=== PATIENT | female | born 1995 | race Caucasian/White ===

== ENCOUNTER 2017-05-12 16:44 | Emergency (ER) | payer OTHER ==
[~2017-05-12] VITALS: Ht 157.5 cm; Wt 61.2 kg
[~2017-05-12 16:44] MED LIST: ALBUTEROL
[2017-05-12] MEDS ORDERED: SODIUM CHLORIDE 0.9% 1,000 ML IV ONE (18:49)
[2017-05-12 19:16] LABS: BASOPHILS % 0.2 % (0.0-2.0); EOSINOPHILS % 0.1 % (0.0-5.0); HEMATOCRIT. 38.7 % (36.0-48.0); HEMOGLOBIN. 13.1 g/dL (12.0-16.0); LYMPHOCYTES % 13.9 % (20.0-50.0); MEAN CORPUSCULAR HEMOGLOBIN 27.5 pg (28.0-32.0); MEAN CORPUSCULAR VOLUME 81.2 fL (81.0-99.0); MEAN PLATELET VOLUME 9.5 fl (7.4-10.4); MONOCYTES % 6.3 % (2.0-8.0); NEUTROPHILS % 79.5 % (40.0-76.0); PLATELET 178 x1000/uL (130-400); RED BLOOD CELL COUNT 4.77 mill/uL (4.2-5.4); RED CELL DISTRIBUTION WIDTH 13.5 % (11.6-14.6)
[2017-05-12 19:21] LABS: HCG SCREEN POSITIVE
[2017-05-12 19:24] LABS: CHLORIDE 106 mEq/L (98-107); PARTIAL THROMBOPLASTIN TIME 25.8 sec (23.4-31.0); PROTHROMBIN TIME 10.5 sec (9.4-11.6)
[2017-05-12 19:25] LABS: CARBON DIOXIDE 24 mEq/L (21-32)
[2017-05-12 19:33] LABS: TROPONIN I 0.03 ng/mL (0.00-0.04)
[2017-05-12 19:37] LABS: B-HCG QUANTITATIVE 826 mIU/mL (<3)
[2017-05-12 19:42] LABS: *AMPHETAMINES SCREEN URINE NEGATIVE (NEGATIVE); *BARBITURATES SCREEN URINE NEGATIVE (NEGATIVE); *BENZODIAZEPINES SCREEN URINE NEGATIVE (NEGATIVE); *COCAINE SCREEN URINE NEGATIVE (NEGATIVE); CANNABINOID URINE SCREEN NEGATIVE (NEGATIVE); METHADONE URINE SCREEN NEGATIVE (NEGATIVE); OPIATES URINE SCREEN NEGATIVE (NEGATIVE); PHENCYCLIDINE URINE SCREEN NEGATIVE (NEGATIVE)
[2017-05-12 23:42] VITALS: BP 126/75
== END 2017-05-13 01:45 | disposition short-term general hospital (02) ==
LOC: ER 17:17
DX: O9A.211 Injury, poisoning and certain other consequences of external causes complicating pregnancy, first trimester (principal); S10.93XA Contusion of unspecified part of neck, initial encounter; S39.91XA Unspecified injury of abdomen, initial encounter; S09.90XA Unspecified injury of head, initial encounter; S29.9XXA Unspecified injury of thorax, initial encounter; O99.411 Diseases of the circulatory system complicating pregnancy, first trimester; R00.0 Tachycardia, unspecified; J45.909 Unspecified asthma, uncomplicated; Z3A.01 Less than 8 weeks gestation of pregnancy; Y04.0XXA Assault by unarmed brawl or fight, initial encounter; Y93.89 Activity, other specified; Y92.89 Other specified places as the place of occurrence of the external cause; Y99.8 Other external cause status
CPT/HCPCS: 36415; 70551; 71010; 72141; 76705; 76801; 76817; 80053; 80305; 81025; 83690; 83880; 84484; 84702; 84703; 85025; 85610; 85730; 86850; 86900; 86901; 93005; 99285; J7030; Z7610

== ENCOUNTER 2017-12-16 00:49 | Inpatient (IN) | payer OTHER ==
[~2017-12-16] VITALS: Ht 154.9 cm; Wt 67.1 kg
[2017-12-16] MEDS ORDERED: PNV1TABL76 MT (01:30)
[2017-12-16] MEDS ORDERED: DEXT 5%/LR + PITOCIN 20UNITS/L 1,000 ML IV SCH (01:33)
[2017-12-16] MEDS ORDERED: CARBOPROST TROMETHAMINE 250 MCG/ML AMPUL IM PRN (01:45)
[2017-12-16] MEDS ORDERED: NALOXONE HCL 0.4 MG/ML 1ML VIAL IM PRN (01:45)
[2017-12-16] MEDS ORDERED: METHYLERGONOVINE MALEATE 0.2 MG/ML IM PRN (01:45)
[2017-12-16] MEDS ORDERED: LIDOCAINE HCL 1% 20ML VIAL (Pyxis) INJ INFIL SCH (01:45)
[2017-12-16] MEDS ORDERED: BUTORPHANOL TARTRATE 2 MG/ML VIAL IV PRN (01:45)
[2017-12-16] MEDS: LACTATED RINGERS 1,000 ML IV SCH ×4 (01:50→09:38)
[2017-12-16] MEDS ORDERED: PENICILLIN G POTASSIUM 5 MMU in DEXT 5% WATER 100 ML IV SCH (02:00)
[2017-12-16 02:20] LABS: BASOPHILS % 0.3 % (0.0-2.0); EOSINOPHILS % 1.5 % (0.0-5.0); HEMATOCRIT. 44.1 % (36.0-48.0); LYMPHOCYTES % 35.9 % (20.0-50.0); MEAN CORPUSCULAR HEMOGLOBIN 30.3 pg (28.0-32.0); MEAN CORPUSCULAR VOLUME 89.4 fL (81.0-99.0); MEAN PLATELET VOLUME 11.6 fl (7.4-10.4); MONOCYTES % 7.1 % (2.0-8.0); NEUTROPHILS % 55.2 % (40.0-76.0); PLATELET 105 x1000/uL (130-400); RED BLOOD CELL COUNT 4.94 mill/uL (4.2-5.4); RED CELL DISTRIBUTION WIDTH 13.5 % (11.6-14.6)
[2017-12-16 02:37] LABS: INR 0.9; PARTIAL THROMBOPLASTIN TIME 29.1 sec (23.4-31.0); PROTHROMBIN TIME 9.2 sec (9.4-11.6)
[2017-12-16 05:41] LABS: CLARITY URINE CLOUDY (CLEAR); COLOR URINE YELLOW (YELLOW); KETONES URINE NEGATIVE (NEGATIVE); LEUKOCYTE ESTERASE URINE 2+ (NEGATIVE); NITRITE URINE NEGATIVE (NEGATIVE); OCCULT BLOOD URINE 3+ (NEGATIVE); PH URINE 6.5 (4.5-8.0); PROTEIN URINE NEGATIVE (NEGATIVE); SPECIFIC GRAVITY URINE 1.007 (1.005-1.030); UROBILINOGEN URINE 0.2 E.U./dL (0.2-1.0)
[2017-12-16] MEDS: PENICILLIN G POTASSIUM 2.5 MMU in DEXTROSE 5% WATER 50 ML IV SCH ×5 (06:04→22:33)
[2017-12-16 06:13] LABS: *AMPHETAMINES SCREEN URINE NEGATIVE (NEGATIVE); *BENZODIAZEPINES SCREEN URINE NEGATIVE (NEGATIVE); *COCAINE SCREEN URINE NEGATIVE (NEGATIVE); CANNABINOID URINE SCREEN NEGATIVE (NEGATIVE); METHADONE URINE SCREEN NEGATIVE (NEGATIVE)
[2017-12-16 06:14] LABS: OPIATES URINE SCREEN NEGATIVE (NEGATIVE); PHENCYCLIDINE URINE SCREEN NEGATIVE (NEGATIVE)
[2017-12-16 06:16] LABS: *BARBITURATES SCREEN URINE NEGATIVE (NEGATIVE)
[2017-12-16] MEDS ORDERED: ERYTHROMYCIN LACTOBIONATE 500 MG in SODIUM CHLORIDE 0.9% 100 ML IV SCH (07:00)
[2017-12-16] MEDS: AZITHROMYCIN 500 MG in SODIUM CHLORIDE 0.9% 250 ML IV SCH (08:15)
[2017-12-16] MEDS: BETAMETHASONE ACET/BETAMET 30 MG/5 ML VIAL IM SCH (09:56)
[2017-12-16 10:45] LABS: BASOPHILS % 0.3 % (0.0-2.0); EOSINOPHILS % 0.3 % (0.0-5.0); HEMATOCRIT. 43.7 % (36.0-48.0); HEMOGLOBIN. 14.8 g/dL (12.0-16.0); MEAN CORPUSCULAR HEMOGLOBIN 30.1 pg (28.0-32.0); MEAN CORPUSCULAR VOLUME 89.2 fL (81.0-99.0); MEAN PLATELET VOLUME 11.6 fl (7.4-10.4); MONOCYTES % 5.2 % (2.0-8.0); NEUTROPHILS % 77.2 % (40.0-76.0); PLATELET 99 x1000/uL (130-400); RED BLOOD CELL COUNT 4.91 mill/uL (4.2-5.4); RED CELL DISTRIBUTION WIDTH 13.8 % (11.6-14.6)
[2017-12-16 10:48] LABS: CHLORIDE 107 mEq/L (98-107)
[2017-12-16 11:00] LABS: D-DIMER 0.94 mg/L FEU (<0.50); INR 0.9; PARTIAL THROMBOPLASTIN TIME 30.8 sec (23.4-31.0); PROTHROMBIN TIME 9.5 sec (9.4-11.6)
[2017-12-16 11:59] LABS: RUBELLA IGG 18.4 IU/mL (4.99-10)
[2017-12-16 12:00] LABS: HEPATITIS B SURFACE ANTIGEN NEGATIVE
[2017-12-16 14:59] LABS: CLARITY URINE CLEAR (CLEAR); COLOR URINE YELLOW (YELLOW); KETONES URINE NEGATIVE (NEGATIVE); LEUKOCYTE ESTERASE URINE NEGATIVE (NEGATIVE); NITRITE URINE NEGATIVE (NEGATIVE); OCCULT BLOOD URINE TRACE (NEGATIVE); PROTEIN URINE TRACE (NEGATIVE); SPECIFIC GRAVITY URINE 1.007 (1.005-1.030); UROBILINOGEN URINE 0.2 E.U./dL (0.2-1.0)
[2017-12-16 22:09] LABS: BASOPHILS % 0.2 % (0.0-2.0); HEMATOCRIT. 43.2 % (36.0-48.0); HEMOGLOBIN. 15.1 g/dL (12.0-16.0); LYMPHOCYTES % 9.9 % (20.0-50.0); MEAN CORPUSCULAR HEMOGLOBIN 31.1 pg (28.0-32.0); MEAN CORPUSCULAR VOLUME 89.3 fL (81.0-99.0); MEAN PLATELET VOLUME 11.9 fl (7.4-10.4); MONOCYTES % 3.2 % (2.0-8.0); NEUTROPHILS % 86.7 % (40.0-76.0); PLATELET 112 x1000/uL (130-400); RED BLOOD CELL COUNT 4.84 mill/uL (4.2-5.4)
[2017-12-16] MEDS ORDERED: BUPIVACAINE HCL/PF 0.25% (2.5MG/ML) 10ML ONE (22:30)
[2017-12-16] MEDS ORDERED: BUPIVACAINE HCL/NS/PF EPIDURAL 100 ML EP ONE (22:30)
[2017-12-16] MEDS ORDERED: FENTANYL CITRATE/PF 50MCG/ML 5ML VIAL ONE (22:30)
[2017-12-16] MEDS ORDERED: BUPIVACAINE HCL/NS/PF EPIDURAL 100 ML EP SCH (23:00)
[2017-12-17] MEDS: PENICILLIN G POTASSIUM 2.5 MMU in DEXTROSE 5% WATER 50 ML IV SCH ×4 (02:20→13:48)
[2017-12-17] MEDS ORDERED: LACTATED RINGERS 1,000 ML IV SCH (04:15)
[2017-12-17] MEDS ORDERED: BUPIVACAINE HCL/NS/PF EPIDURAL 100 ML EP ONE (07:55)
[2017-12-17] MEDS ORDERED: HETASTARCH/NORMAL SALINE 500 ML IV ONE (07:56)
[2017-12-17] MEDS: AZITHROMYCIN 500 MG in SODIUM CHLORIDE 0.9% 250 ML IV SCH (09:54)
[2017-12-17] MEDS: BETAMETHASONE ACET/BETAMET 30 MG/5 ML VIAL IM SCH (09:58)
[2017-12-17] MEDS ORDERED: DEXT 5%/LR + PITOCIN 20UNITS/L 1,000 ML IV NR (10:30)
[2017-12-17] MEDS ORDERED: DEXT 5%/LR + PITOCIN 20UNITS/L 1,000 ML IV SCH ×2 (10:30→15:51)
[2017-12-17] MEDS ORDERED: BUPIVACAINE HCL/PF 0.25% (2.5MG/ML) 10ML ONE (13:00)
[2017-12-17 13:36] LABS: BASOPHILS % 0.1 % (0.0-2.0); HEMATOCRIT. 44.2 % (36.0-48.0); HEMOGLOBIN. 14.8 g/dL (12.0-16.0); LYMPHOCYTES % 9.5 % (20.0-50.0); MEAN CORPUSCULAR HEMOGLOBIN 30.1 pg (28.0-32.0); MEAN CORPUSCULAR VOLUME 89.9 fL (81.0-99.0); MEAN PLATELET VOLUME 11.2 fl (7.4-10.4); MONOCYTES % 1.7 % (2.0-8.0); NEUTROPHILS % 88.7 % (40.0-76.0); PLATELET 100 x1000/uL (130-400); RED BLOOD CELL COUNT 4.92 mill/uL (4.2-5.4); RED CELL DISTRIBUTION WIDTH 14.3 % (11.6-14.6)
[2017-12-17 13:39] LABS: INR 0.9; PARTIAL THROMBOPLASTIN TIME 26.3 sec (23.4-31.0); PROTHROMBIN TIME 9.4 sec (9.4-11.6)
[2017-12-17 14:04] LABS: CHLORIDE 106 mEq/L (98-107)
[2017-12-17] MEDS ORDERED: IBUPROFEN 800MG TABLET PO PRN (16:00)
[2017-12-17] MEDS ORDERED: LANOLIN OINT 0.25 GM TUBE TOP PRN (16:00)
[2017-12-17] MEDS ORDERED: RHO(D) IMMUNE GLOBULIN 300 MCG/SYR IM PRN (16:00)
[2017-12-17] MEDS ORDERED: IBUPROFEN 400MG TABLET PO PRN (16:00)
[2017-12-17] MEDS ORDERED: DIPHENHYDRAMINE 25MG CAPSULE PO PRN (16:00)
[2017-12-17 17:30] VITALS: BP 129/84
[2017-12-17 19:20] VITALS: BP 121/76
[2017-12-17] MEDS: DOCUSATE SODIUM 100MG CAPSULE PO SCH (21:04)
[2017-12-18 04:10] VITALS: BP 111/69
[2017-12-18 05:58] LABS: BASOPHILS % 0.1 % (0.0-2.0); HEMOGLOBIN. 12.8 g/dL (12.0-16.0); LYMPHOCYTES % 15.9 % (20.0-50.0); MEAN CORPUSCULAR HEMOGLOBIN 30.2 pg (28.0-32.0); MEAN PLATELET VOLUME 11.7 fl (7.4-10.4); MONOCYTES % 5.3 % (2.0-8.0); NEUTROPHILS % 78.7 % (40.0-76.0); PLATELET 90 x1000/uL (130-400); RED BLOOD CELL COUNT 4.23 mill/uL (4.2-5.4); RED CELL DISTRIBUTION WIDTH 14.1 % (11.6-14.6)
[2017-12-18 08:40] VITALS: BP 126/89
[2017-12-18 16:00] VITALS: BP 131/72
[2017-12-18] MEDS: PRENATAL VIT/FE FUMARATE/FA TABLET PO SCH (16:57)
[2017-12-18] MEDS: DOCUSATE SODIUM 100MG CAPSULE PO SCH (21:00)
[2017-12-18 22:00] VITALS: BP 117/67
[2017-12-19 00:01] VITALS: BP 131/78
[2017-12-19 06:22] LABS: HEMATOCRIT 42.9 % (36.0-48.0); HEMOGLOBIN 14.3 g/dL (12.0-16.0); MEAN CORPUSCULAR HEMOGLOBIN 30.3 pg (28.0-32.0); MEAN CORPUSCULAR VOLUME 91.1 fL (81.0-99.0); PLATELET 97 x1000/uL (130-400); RED BLOOD CELL COUNT 4.71 mill/uL (4.2-5.4); RED CELL DISTRIBUTION WIDTH 14.1 % (11.6-14.6)
[2017-12-19 08:00] VITALS: BP 130/80
[2017-12-19] MEDS: PRENATAL VIT/FE FUMARATE/FA TABLET PO SCH (08:20)
[2017-12-19] MEDS ORDERED: TETANUS, DIPHTHERIA, PERTUSSIS VAC/PF 0.5ML (>7YR OLD) IM ONE (12:30)
== END 2017-12-19 13:00 | disposition home or self-care (01) | DRG 560 ==
LOC: OBSVTOIN 00:49 → L&D 00:49 → 7EST PP/OB 12-17 17:30
PROVIDERS: ADMIT Specialist; ATTEND Specialist
PROC: 3E0R3BZ Introduction of Anesthetic Agent into Spinal Canal, Percutaneous Approach (ICD-10-PCS; 2017-12-17)
PROC: 00HU33Z Insertion of Infusion Device into Spinal Canal, Percutaneous Approach (ICD-10-PCS; 2017-12-17)
PROC: 10E0XZZ Delivery of Products of Conception, External Approach (ICD-10-PCS; principal; 2017-12-17 14:56)
DX: O42.913 Preterm premature rupture of membranes, unspecified as to length of time between rupture and onset of labor, third trimester (principal); D69.6 Thrombocytopenia, unspecified; Z37.0 Single live birth; O99.12 Other diseases of the blood and blood-forming organs and certain disorders involving the immune mechanism complicating childbirth; J45.909 Unspecified asthma, uncomplicated; O99.52 Diseases of the respiratory system complicating childbirth; Z3A.36 36 weeks gestation of pregnancy
CPT/HCPCS: 36415; 76805; 76818; 80053; 80305; 81003; 84550; 85025; 85027; 85379; 85384; 85610; 85730; 86592; 86703; 86762; 86850; 86900; 87086; 87340; 88307; 90715; 99281; G0378; J0456; J0595; J0702; J2540; J2590; J3010; J3490; J7050; J7060; J7120; A4315

== ENCOUNTER 2019-12-15 14:21 | Observation (INO) | payer MEDICAID ==
[~2019-12-15] VITALS: Ht 154.9 cm; Wt 75.7 kg
[~2019-12-15 14:21] MED LIST changes: +PNV1TABL76 MT
[2019-12-15 16:28] LABS: CLARITY URINE CLEAR (CLEAR); COLOR URINE YELLOW (YELLOW); KETONES URINE NEGATIVE (NEGATIVE); LEUKOCYTE ESTERASE URINE TRACE (NEGATIVE); NITRITE URINE NEGATIVE (NEGATIVE); OCCULT BLOOD URINE NEGATIVE (NEGATIVE); PROTEIN URINE TRACE (NEGATIVE); SPECIFIC GRAVITY URINE 1.013 (1.005-1.030)
[2019-12-15 16:28] LABS: BASOPHILS % 0.3 % (0.0-2.0); EOSINOPHILS % 0.4 % (0.0-5.0); HEMATOCRIT. 35.6 % (36.0-48.0); HEMOGLOBIN. 11.7 g/dL (12.0-16.0); LYMPHOCYTES % 15.2 % (20.0-50.0); MEAN CORPUSCULAR HEMOGLOBIN 27.1 pg (28.0-32.0); MEAN CORPUSCULAR VOLUME 82.6 fL (81.0-99.0); MEAN PLATELET VOLUME 11.9 fl (7.4-10.4); MONOCYTES % 6.4 % (2.0-8.0); NEUTROPHILS % 77.7 % (40.0-76.0); PLATELET 161 x1000/uL (130-400); RED BLOOD CELL COUNT 4.32 mill/uL (4.2-5.4); RED CELL DISTRIBUTION WIDTH 13.8 % (11.6-14.6)
[2019-12-15 16:31] LABS: CHLORIDE 108 mEq/L (98-107)
[2019-12-15 16:41] LABS: D-DIMER 0.68 mg/L FEU (<0.50); INR 0.8; PARTIAL THROMBOPLASTIN TIME 25.4 sec (23.4-31.0); PROTHROMBIN TIME 9.1 sec (9.6-11.0)
== END 2019-12-15 17:15 | disposition home or self-care (01) ==
LOC: 8 EST LDRP 14:21
PROVIDERS: ADMIT Obstetrics & Gynecology; ATTEND Obstetrics & Gynecology
DX: O26.893 Other specified pregnancy related conditions, third trimester (principal); R03.0 Elevated blood-pressure reading, without diagnosis of hypertension; Z3A.37 37 weeks gestation of pregnancy; Z79.899 Other long term (current) drug therapy
CPT/HCPCS: 36415; 80053; 81003; 82570; 84156; 84550; 85025; 85379; 85384; 85610; 85730; 99281; G0378

== ENCOUNTER 2019-12-21 15:17 | Inpatient (IN) | payer MEDICAID ==
[~2019-12-21] VITALS: Ht 154.9 cm; Wt 75.3 kg
[2019-12-21] MEDS ORDERED: BUTORPHANOL TARTRATE 2 MG/ML VIAL IV PRN (16:15)
[2019-12-21] MEDS ORDERED: LIDOCAINE HCL 1% 20ML VIAL (Pyxis) INJ INFIL SCH (16:15)
[2019-12-21] MEDS ORDERED: NALOXONE HCL 0.4 MG/ML 1ML VIAL IM PRN (16:15)
[2019-12-21] MEDS: LACTATED RINGERS 1,000 ML IV SCH ×2 (16:30→21:40)
[2019-12-21] MEDS ORDERED: PENICILLIN G POTASSIUM 5 MMU in DEXT 5% WATER 100 ML IV SCH (17:00)
[2019-12-21 17:31] LABS: BASOPHILS % 0.2 % (0.0-2.0); EOSINOPHILS % 0.3 % (0.0-5.0); HEMATOCRIT. 38.5 % (36.0-48.0); HEMOGLOBIN. 12.7 g/dL (12.0-16.0); MEAN CORPUSCULAR HEMOGLOBIN 26.9 pg (28.0-32.0); MEAN CORPUSCULAR VOLUME 81.8 fL (81.0-99.0); MEAN PLATELET VOLUME 12.2 fl (7.4-10.4); MONOCYTES % 5.7 % (2.0-8.0); NEUTROPHILS % 79.8 % (40.0-76.0); PLATELET 184 x1000/uL (130-400); RED BLOOD CELL COUNT 4.71 mill/uL (4.2-5.4)
[2019-12-21 17:32] LABS: CHLORIDE 106 mEq/L (98-107)
[2019-12-21 17:41] LABS: INR 0.8; PARTIAL THROMBOPLASTIN TIME 26.3 sec (23.4-31.0)
[2019-12-21] MEDS: DEXT 5%/LR + PITOCIN 20UNITS/L 1,000 ML IV SCH (17:57)
[2019-12-21 18:31] LABS: *AMPHETAMINES SCREEN URINE NEGATIVE (NEGATIVE); *BARBITURATES SCREEN URINE NEGATIVE (NEGATIVE); *BENZODIAZEPINES SCREEN URINE NEGATIVE (NEGATIVE); *COCAINE SCREEN URINE NEGATIVE (NEGATIVE); METHADONE URINE SCREEN NEGATIVE (NEGATIVE)
[2019-12-21 18:32] LABS: CANNABINOID URINE SCREEN NEGATIVE (NEGATIVE); OPIATES URINE SCREEN NEGATIVE (NEGATIVE); PHENCYCLIDINE URINE SCREEN NEGATIVE (NEGATIVE)
[2019-12-21 18:33] LABS: HEPATITIS B SURFACE ANTIGEN NEGATIVE
[2019-12-21 19:13] LABS: PROTHROMBIN TIME 8.9 sec (9.6-11.0)
[2019-12-21] MEDS ORDERED: ROPIVACAINE HCL/PF EPIDURAL 200 ML EPI SCH (20:00)
[2019-12-21] MEDS ORDERED: DEXT 5%/LR + PITOCIN 20UNITS/L 1,000 ML IV ONE (20:26)
[2019-12-21] MEDS: PENICILLIN G POTASSIUM 2.5 MMU in DEXTROSE 5% WATER 50 ML IV SCH (21:37)
[2019-12-22] MEDS: PENICILLIN G POTASSIUM 2.5 MMU in DEXTROSE 5% WATER 50 ML IV SCH ×6 (01:00→21:42)
[2019-12-22] MEDS: LACTATED RINGERS 1,000 ML IV SCH ×2 (02:37→17:20)
[2019-12-22] MEDS ORDERED: ROPIVACAINE HCL 2MG/ML (0.2%) 200ML BOTTLE IR ONE (16:45)
[2019-12-22] MEDS ORDERED: ROPIVACAINE HCL/PF EPIDURAL 200 ML EPI NR (16:45)
[2019-12-22] MEDS ORDERED: METHIMAZOLE (20:09)
[2019-12-22] MEDS ORDERED: ACETAMINOPHEN 500MG TABLET PO NR (20:15)
[2019-12-22] MEDS: METHIMAZOLE 5MG TABLET PO SCH (20:25)
[2019-12-23] MEDS ORDERED: LIDOCAINE HCL 1% 20ML VIAL (Pyxis) INJ INFIL SCH (00:30)
[2019-12-23] MEDS: DEXT 5%/LR + PITOCIN 20UNITS/L 1,000 ML IV SCH ×2 (00:59→01:02)
[2019-12-23] MEDS ORDERED: PENICILLIN G POTASSIUM 2.5 MMU in DEXTROSE 5% WATER 50 ML IV SCH (01:00)
[2019-12-23] MEDS ORDERED: DIPHENHYDRAMINE 25MG CAPSULE PO PRN (01:45)
[2019-12-23] MEDS ORDERED: HEMORRHOIDAL SUPP PR PRN (01:45)
[2019-12-23] MEDS ORDERED: GLYCERIN/WITCH HAZEL LEAF MEDICATED PAD TOP PRN (01:45)
[2019-12-23] MEDS ORDERED: ACETAMINOPHEN 500MG TABLET PO PRN (01:45)
[2019-12-23] MEDS ORDERED: DEXT 5%/LR + PITOCIN 20UNITS/L 1,000 ML IV SCH (01:45)
[2019-12-23] MEDS ORDERED: BENZOCAINE/LANOLIN/ALOE VERA SPRAY TOP PRN (01:45)
[2019-12-23] MEDS ORDERED: BISACODYL 10MG SUPP PR PRN (01:45)
[2019-12-23] MEDS ORDERED: IBUPROFEN 400MG TABLET PO PRN (01:45)
[2019-12-23] MEDS ORDERED: LANOLIN OINT 7GM TUBE TOP PRN (01:45)
[2019-12-23] MEDS ORDERED: METHYLERGONOVINE MALEATE 0.2 MG/ML IM PRN (02:00)
[2019-12-23] MEDS: IBUPROFEN 800MG TABLET PO PRN ×2 (02:20→09:34)
[2019-12-23] MEDS: LABETALOL HCL 200MG TABLET PO SCH ×4 (04:31→21:18)
[2019-12-23 05:45] VITALS: BP 129/77
[2019-12-23 08:41] VITALS: BP 114/70
[2019-12-23] MEDS: METHIMAZOLE 5MG TABLET PO SCH ×2 (09:34→21:17)
[2019-12-23] MEDS: SIMETHICONE 80MG TABLET CHEW PO SCH ×4 (09:34→21:17)
[2019-12-23] MEDS: PRENATAL VIT/FE FUMARATE/FA TABLET PO SCH (09:35)
[2019-12-23 14:57] VITALS: BP 139/72
[2019-12-23] MEDS ORDERED: DOCUSATE SODIUM 100MG CAPSULE PO SCH (21:00)
[2019-12-23 22:00] VITALS: BP 118/72
[2019-12-24 05:20] VITALS: BP 115/70
[2019-12-24 07:28] VITALS: BP 124/81
[2019-12-24] MEDS ORDERED: FERROUS SULFATE 325MG TABLET PO SCH (07:30)
[2019-12-24] MEDS: SIMETHICONE 80MG TABLET CHEW PO SCH (08:12)
[2019-12-24] MEDS: PRENATAL VIT/FE FUMARATE/FA TABLET PO SCH (08:13)
[2019-12-24] MEDS: IBUPROFEN 800MG TABLET PO PRN (08:13)
[2019-12-24] MEDS: LABETALOL HCL 200MG TABLET PO SCH (08:14)
[2019-12-24] MEDS: METHIMAZOLE 5MG TABLET PO SCH (08:15)
== END 2019-12-24 12:30 | disposition home or self-care (01) | DRG 560 ==
LOC: OBSVTOIN 15:17 → 8 EST LDRP 15:17 → 8EST 12-23 05:45
PROVIDERS: ADMIT Obstetrics & Gynecology; ATTEND Obstetrics & Gynecology
PROC: 10E0XZZ Delivery of Products of Conception, External Approach (ICD-10-PCS; principal; 2019-12-23)
PROC: 10907ZC Drainage of Amniotic Fluid, Therapeutic from Products of Conception, Via Natural or Artificial Opening (ICD-10-PCS; 2019-12-23)
PROC: 10H07YZ Insertion of Other Device into Products of Conception, Via Natural or Artificial Opening (ICD-10-PCS; 2019-12-23)
PROC: 3E0R3BZ Introduction of Anesthetic Agent into Spinal Canal, Percutaneous Approach (ICD-10-PCS; 2019-12-23)
PROC: 00HU33Z Insertion of Infusion Device into Spinal Canal, Percutaneous Approach (ICD-10-PCS; 2019-12-23)
PROC: 3E033VJ Introduction of Other Hormone into Peripheral Vein, Percutaneous Approach (ICD-10-PCS; 2019-12-23)
DX: O13.4 Gestational [pregnancy-induced] hypertension without significant proteinuria, complicating childbirth (principal); E05.90 Thyrotoxicosis, unspecified without thyrotoxic crisis or storm; O14.94 Unspecified pre-eclampsia, complicating childbirth; O99.824 Streptococcus B carrier state complicating childbirth; O69.82X0 Labor and delivery complicated by other cord entanglement, without compression, not applicable or unspecified; O69.81X0 Labor and delivery complicated by cord around neck, without compression, not applicable or unspecified; O99.284 Endocrine, nutritional and metabolic diseases complicating childbirth; Z37.0 Single live birth; Z3A.38 38 weeks gestation of pregnancy
CPT/HCPCS: 36415; 80053; 80305; 82575; 84156; 84550; 85025; 85384; 86592; 86703; 86762; 86850; 86900; 87340; 99281; J2540; J2590; J2795; J3490; J7060; J7120

== ENCOUNTER 2020-03-14 13:41 | Emergency (ER) | payer MEDICAID ==
[~2020-03-14] VITALS: Ht 154.9 cm; Wt 65.4 kg
[~2020-03-14 13:41] MED LIST changes: +METHIMAZOLE
[2020-03-14 15:00] VITALS: BP 125/89
[2020-03-14] MEDS ORDERED: ACETAMINOPHEN 325MG TABLET PO ONE (15:30)
== END 2020-03-14 16:36 | disposition home or self-care (01) ==
LOC: ER 13:41
DX: U07.1 COVID-19 (principal); M79.10 Myalgia, unspecified site; R19.7 Diarrhea, unspecified; E05.90 Thyrotoxicosis, unspecified without thyrotoxic crisis or storm
CPT/HCPCS: 71045; 93005; 99283; C9803; U0003

== ENCOUNTER 2021-07-05 17:14 | Emergency (ER) | payer MEDICAID ==
[~2021-07-05] VITALS: Ht 152.4 cm; Wt 69.0 kg
[2021-07-05] MEDS ORDERED: IBUPROFEN 600MG TABLET PO STA (22:14)
[2021-07-05 22:48] VITALS: BP 133/80
[2021-07-05] MEDS ORDERED: IBUP-2029 PO (22:53)
== END 2021-07-05 23:22 | disposition home or self-care (01) ==
LOC: ER 17:14
DX: S90.112A Contusion of left great toe without damage to nail, initial encounter (principal); E05.90 Thyrotoxicosis, unspecified without thyrotoxic crisis or storm; W22.8XXA Striking against or struck by other objects, initial encounter; Y93.89 Activity, other specified; Y92.018 Other place in single-family (private) house as the place of occurrence of the external cause
CPT/HCPCS: 73660; 99283

== ENCOUNTER 2023-02-06 13:30 | Observation (INO) | payer BC, MEDICAID ==
[~2023-02-06] VITALS: Ht 154.9 cm; Wt 68.9 kg
[~2023-02-06 13:30] MED LIST changes: +IBUP-2029 PO
[2023-02-06 14:46] LABS: CLARITY URINE CLEAR (CLEAR); COLOR URINE YELLOW (YELLOW); KETONES URINE NEGATIVE (NEGATIVE); LEUKOCYTE ESTERASE URINE NEGATIVE (NEGATIVE); NITRITE URINE NEGATIVE (NEGATIVE); OCCULT BLOOD URINE NEGATIVE (NEGATIVE); PROTEIN URINE NEGATIVE (NEGATIVE); SPECIFIC GRAVITY URINE 1.007 (1.005-1.030); UROBILINOGEN URINE 0.2 E.U./dL (0.2-1.0)
== END 2023-02-06 15:10 | disposition home or self-care (01) ==
LOC: 8 EST LDRP 13:30
PROVIDERS: ADMIT Obstetrics & Gynecology; ATTEND Obstetrics & Gynecology
DX: O26.892 Other specified pregnancy related conditions, second trimester (principal); R10.9 Unspecified abdominal pain; R10.2 Pelvic and perineal pain; N89.8 Other specified noninflammatory disorders of vagina; O36.8120 Decreased fetal movements, second trimester, not applicable or unspecified; Z3A.21 21 weeks gestation of pregnancy
CPT/HCPCS: 59025; 81003; G0378; G0379

== ENCOUNTER 2023-04-15 17:46 | Observation (INO) | payer BC, MEDICAID ==
[~2023-04-15] VITALS: Ht 154.9 cm; Wt 79.8 kg
[2023-04-15 19:57] LABS: CLARITY URINE CLEAR (CLEAR); COLOR URINE YELLOW (YELLOW); GLUCOSE URINE NEGATIVE (NEGATIVE); KETONES URINE NEGATIVE (NEGATIVE); LEUKOCYTE ESTERASE URINE NEGATIVE (NEGATIVE); NITRITE URINE NEGATIVE (NEGATIVE); OCCULT BLOOD URINE NEGATIVE (NEGATIVE); PH URINE 6.5 (4.5-8.0); PROTEIN URINE NEGATIVE (NEGATIVE); SPECIFIC GRAVITY URINE 1.004 (1.005-1.030); UROBILINOGEN URINE 0.2 E.U./dL (0.2-1.0)
== END 2023-04-15 23:29 | disposition home or self-care (01) ==
LOC: 8 EST LDRP 17:46
PROVIDERS: ADMIT Obstetrics & Gynecology; ATTEND Obstetrics & Gynecology
DX: O42.913 Preterm premature rupture of membranes, unspecified as to length of time between rupture and onset of labor, third trimester (principal); Z3A.31 31 weeks gestation of pregnancy
CPT/HCPCS: 59025; 81003; 76818; 76805; G0378 ×2; 99281

== ENCOUNTER 2024-06-24 09:07 | Emergency (ER) | payer BC, MEDICAID ==
[~2024-06-24] VITALS: Ht 154.9 cm; Wt 59.0 kg
[2024-06-24 09:57] VITALS: BP 127/75; PULSE 100; RESP 18; TEMP 98.6; O2SAT 100; O2SAT 98
[2024-06-24] MEDS ORDERED: ACET-2708 MT (10:24)
[2024-06-24] MEDS ORDERED: AMOX1TAB16 MT (10:24)
== END 2024-06-24 10:38 | disposition home or self-care (01) ==
LOC: ER 09:07
DX: S09.90XA Unspecified injury of head, initial encounter (principal); G89.11 Acute pain due to trauma; E05.90 Thyrotoxicosis, unspecified without thyrotoxic crisis or storm; Z79.899 Other long term (current) drug therapy; X58.XXXA Exposure to other specified factors, initial encounter; Y93.89 Activity, other specified; Y92.89 Other specified places as the place of occurrence of the external cause; Y99.8 Other external cause status
CPT/HCPCS: 99283